=== PATIENT | female | born 1995 | race Two or more races ===

== ENCOUNTER → 2022-03-28 | Emergency (ER) | payer OTHER ==
[~2022-03-28] VITALS: Ht 165.1 cm; Wt 68.0 kg
--- NOTE | 2022-03-28 03:15 | NUR ---
PATIENT BIBRA 89 FROM HOME C/O ETOH AND EATING EDIBLE TONIGHT. PATIENT IS A/O TO PAIN, RR EVEN AND UNLABORED NO SOB NOTED. PATIENT CONNECTED TO TUYERE FITTER AND POX. WILL CONTINUE TO MONITOR.
--- NOTE | 2022-03-28 08:10 | NUR ---
Patient discharged to home in stable condition. Written and verbal after care instructions given. Patient verbalizes understanding of instruction.
--- NOTE | 2022-03-28 08:10 | NUR ---
IV removed. Catheter intact and site benign. Pressure and 4x4 applied to site. No bleeding noted.
[2022-03-28 08:12] VITALS: BP 100/63
== END | disposition home or self-care (01) ==
LOC: ER 02:49
DX: F10.129 Alcohol abuse with intoxication, unspecified (principal); F17.200 Nicotine dependence, unspecified, uncomplicated; R41.82 Altered mental status, unspecified; Z60.2 Problems related to living alone; Y90.9 Presence of alcohol in blood, level not specified